=== PATIENT | female | born 1990 | race African-American/Black ===

== ENCOUNTER 2021-05-11 19:25 | Emergency (ER) | payer MEDICAID ==
[~2021-05-11] VITALS: Ht 175.3 cm; Wt 62.0 kg
[2021-05-11] MEDS ORDERED: SULF1TAB48 MT (21:26)
[2021-05-11 21:30] VITALS: BP 113/76
== END 2021-05-11 21:30 | disposition home or self-care (01) ==
LOC: ER 19:25
DX: L73.9 Follicular disorder, unspecified (principal); Z22.322 Carrier or suspected carrier of Methicillin resistant Staphylococcus aureus
CPT/HCPCS: 99281

== ENCOUNTER 2021-05-18 00:55 | Emergency (ER) | payer MEDICAID ==
[~2021-05-18] VITALS: Ht 165.1 cm; Wt 62.0 kg
[~2021-05-18 00:55] MED LIST: SULF1TAB48 MT
[2021-05-18] MEDS ORDERED: MUPI22OI2 TP (02:15)
[2021-05-18 02:30] VITALS: BP 128/64
[2021-05-18] MEDS ORDERED: MUPIROCIN 2% OINT 22GM TOP SCH (06:00)
== END 2021-05-18 02:30 | disposition home or self-care (01) ==
LOC: ER 00:55
DX: R21 Rash and other nonspecific skin eruption (principal)
CPT/HCPCS: 99283

== ENCOUNTER 2023-05-08 06:14 | Emergency (ER) | payer MEDICAID ==
[~2023-05-08] VITALS: Ht 172.7 cm; Wt 77.0 kg
[~2023-05-08 06:14] MED LIST changes: +MUPI22OI2 TP
[2023-05-08 06:23] VITALS: BP 112/75; PULSE 78; RESP 16; TEMP 98.5; O2SAT 99
== END 2023-05-08 08:26 | disposition left against medical advice (07) ==
LOC: ER 06:14
DX: Z53.21 Procedure and treatment not carried out due to patient leaving prior to being seen by health care provider (principal)
CPT/HCPCS: 99281; 99283